=== PATIENT | male | born 1990 | race Two or more races ===

== ENCOUNTER → 2024-12-10 | Outpatient (CLI) | payer BC, SELFPAY | END | disposition home or self-care (01) | LOC: SLDO 14:28 | PROVIDERS: Referring Provider Student in an Organized Health Care Education/Training Program; Visit Provider Student in an Organized Health Care Education/Training Program | DX: M86.372 Chronic multifocal osteomyelitis, left ankle and foot (principal) | CPT/HCPCS: 87070; 87075; 87077; 87186; 87205 ==

== ENCOUNTER → 2024-12-10 | Outpatient (CLI) | payer BC, SELFPAY | END | disposition home or self-care (01) | LOC: SWHD 07:55 | PROVIDERS: PCP Family Medicine; Referring Provider Family Medicine; Visit Provider Student in an Organized Health Care Education/Training Program | DX: S91.002D Unspecified open wound, left ankle, subsequent encounter (principal); V87.8XXD Person injured in other specified noncollision transport accidents involving motor vehicle (traffic), subsequent encounter; T81.89XD Other complications of procedures, not elsewhere classified, subsequent encounter; F17.200 Nicotine dependence, unspecified, uncomplicated; M86.9 Osteomyelitis, unspecified | CPT/HCPCS: 11042; 99214; A9270; G0463 ==

== ENCOUNTER → 2024-12-19 | Outpatient (CLI) | payer BC, SELFPAY | END | disposition home or self-care (01) | LOC: SWHD 13:41 | PROVIDERS: PCP Family Medicine; Referring Provider Family Medicine; Visit Provider Student in an Organized Health Care Education/Training Program | DX: S91.002D Unspecified open wound, left ankle, subsequent encounter (principal); V87.8XXD Person injured in other specified noncollision transport accidents involving motor vehicle (traffic), subsequent encounter; T81.89XD Other complications of procedures, not elsewhere classified, subsequent encounter; F17.200 Nicotine dependence, unspecified, uncomplicated; M86.9 Osteomyelitis, unspecified | CPT/HCPCS: 97597; A9270 ==

== ENCOUNTER → 2024-12-24 | Outpatient (CLI) | payer BC, SELFPAY ==
--- NOTE | 2024-12-24 15:05 | XR_ITS ---
EXAMINATION: Ankle, left 3 views . Technique: Ankle AP, oblique, lateral 3 views Date and time of exam: December 24, 2024 1511 hours Comparison February 25, 2024 INDICATIONS: Chronic ankle infection 22 years multiple surgeries the last 2011 FINDINGS: Abnormal sclerosis and thickening of the cortex distal tibial shaft with scalloped chronic defect in the tibial shaft on the medial side The erosion appears slightly more prominent compared to the 2023 exam No pathologic fracture Severe osteopenia IMPRESSION: Chronic osteomyelitis distal medial tibial shaft
[2024-12-24 16:55] LABS: C-Reactive Protein < 0.5 mg/dL (0.0-0.9)
[2024-12-24 17:14] LABS: Sed Rate (ESR) 14 mm/hr (0-15)
== END | disposition home or self-care (01) ==
LOC: CDIM 14:56 → COPL 15:22
PROVIDERS: Referring Provider Student in an Organized Health Care Education/Training Program; Visit Provider Student in an Organized Health Care Education/Training Program
DX: M86.662 Other chronic osteomyelitis, left tibia and fibula (principal); M86.372 Chronic multifocal osteomyelitis, left ankle and foot
CPT/HCPCS: 36415; 73610; 85652; 86140

== ENCOUNTER → 2025-01-21 | Outpatient (CLI) | payer BC, SELFPAY | END | disposition home or self-care (01) | LOC: SWHD 08:22 | PROVIDERS: PCP Family Medicine; Referring Provider Family Medicine; Visit Provider Student in an Organized Health Care Education/Training Program | DX: S91.002D Unspecified open wound, left ankle, subsequent encounter (principal); V87.8XXD Person injured in other specified noncollision transport accidents involving motor vehicle (traffic), subsequent encounter; T81.89XD Other complications of procedures, not elsewhere classified, subsequent encounter; F17.200 Nicotine dependence, unspecified, uncomplicated; M86.9 Osteomyelitis, unspecified | CPT/HCPCS: 97597; A9270 ==

== ENCOUNTER → 2025-01-28 | Outpatient (CLI) | payer BC, SELFPAY | END | disposition home or self-care (01) | LOC: SWHD 08:08 | PROVIDERS: PCP Family Medicine; Referring Provider Family Medicine; Visit Provider Student in an Organized Health Care Education/Training Program | DX: S91.002D Unspecified open wound, left ankle, subsequent encounter (principal); V87.8XXD Person injured in other specified noncollision transport accidents involving motor vehicle (traffic), subsequent encounter; T81.89XD Other complications of procedures, not elsewhere classified, subsequent encounter; F17.200 Nicotine dependence, unspecified, uncomplicated; M86.9 Osteomyelitis, unspecified | CPT/HCPCS: 97597; A9270 ==

== ENCOUNTER → 2025-01-31 | Outpatient (CLI) | payer BC, SELFPAY ==
--- NOTE | 2025-01-31 15:34 | XR_ITS ---
EXAMINATION: Ankle, right 3 views . Technique: Ankle AP, oblique, lateral 3 views Date and time of exam: January 31, 2025 1534 hours INDICATIONS: Nonhealing ulcer on the medial side of the ankle one month, chronic infection 15 years. FINDINGS: Chronic osteomyelitis medial anterior ankle at the level of the medial anterior distal tibia Severe osteopenia Extensive ankle effusion No acute fracture No fracture IMPRESSION: Again noted extensive chronic osteomyelitis distal anterior medial tibial shaft which appears slightly worse compared with December 24, 2024
[2025-01-31 16:08] LABS: Basophils # (Auto) 0.0 Thou/mm3 (0.0-0.2); Basophils % (Auto) 1 % (0-2.5); Eosinophils # (Auto) 0.0 Thou/mm3 (0.0-0.5); Eosinophils % (Auto) 1 % (0-10); Hematocrit 45.0 % (41.0-53.0); Hemoglobin 16.0 g/dL (13.5-16.0); Immature Granulocytes Auto 0.02 Thou/mm3 (0.00-0.00); Lymphocytes # (Auto) 2.0 Thou/mm3 (1.0-4.8); Lymphocytes % (Auto) 30 % (10-50); Mean Corpuscular HGB Conc 35.6 g/dl (31.0-37.0); Mean Corpuscular Hemoglobin 32.2 pg (25.0-35.0); Mean Corpuscular Volume 91 fL (80-100); Monocytes # (Auto) 0.5 Thou/mm3 (0.0-0.8); Monocytes % (Auto) 7 % (0-12); Neutrophils # (Auto) 4.1 Thou/mm3 (1.8-7.7); Neutrophils % (Auto) 62 % (37-80); Nucleated Red Blood Cell # 0.00 Thou/mm3 (0.00-0.00); Nucleated Red Blood Cell % 0 /100 WBC (0); Platelet Count 308 Thou/mm3 (140-440); RDW Standard Deviation 41.1 fL (35.1-43.9); Red Blood Count 4.97 Miln/mm3 (4.50-5.90); White Blood Count 6.7 Thou/mm3 (3.8-10.6)
[2025-01-31 16:22] LABS: Sed Rate (ESR) 15 mm/hr (0-15)
[2025-01-31 16:44] LABS: C-Reactive Protein < 0.5 mg/dL (0.0-0.9)
== END | disposition home or self-care (01) ==
LOC: CDIM 15:06 → COPL 15:44
PROVIDERS: Referring Provider Student in an Organized Health Care Education/Training Program; Visit Provider Radiology Diagnostic Radiology
DX: M86.662 Other chronic osteomyelitis, left tibia and fibula (principal); M86.372 Chronic multifocal osteomyelitis, left ankle and foot
CPT/HCPCS: 36415; 73610; 85025; 85652; 86140

== ENCOUNTER → 2025-02-04 | Outpatient (CLI) | payer BC, SELFPAY | END | disposition home or self-care (01) | PROVIDERS: PCP Family Medicine; Referring Provider Family Medicine; Visit Provider Student in an Organized Health Care Education/Training Program | DX: S91.002D Unspecified open wound, left ankle, subsequent encounter (principal); V87.8XXD Person injured in other specified noncollision transport accidents involving motor vehicle (traffic), subsequent encounter; T81.89XD Other complications of procedures, not elsewhere classified, subsequent encounter | CPT/HCPCS: 11042; A9270 ==

== ENCOUNTER → 2025-02-04 | Outpatient (CLI) | payer BC, SELFPAY | END | disposition home or self-care (01) | LOC: SLDO 14:28 | PROVIDERS: Referring Provider Student in an Organized Health Care Education/Training Program; Visit Provider Student in an Organized Health Care Education/Training Program | DX: M86.372 Chronic multifocal osteomyelitis, left ankle and foot (principal) | CPT/HCPCS: 87070; 87075; 87077; 87186; 87205 ==

== ENCOUNTER → 2025-02-11 | Outpatient (CLI) | payer BC, SELFPAY | END | disposition home or self-care (01) | LOC: SWHD 15:07 | PROVIDERS: PCP Family Medicine; Referring Provider Family Medicine; Visit Provider Student in an Organized Health Care Education/Training Program | DX: S91.002D Unspecified open wound, left ankle, subsequent encounter (principal); V87.8XXD Person injured in other specified noncollision transport accidents involving motor vehicle (traffic), subsequent encounter; T81.89XD Other complications of procedures, not elsewhere classified, subsequent encounter; I10 Essential (primary) hypertension; E78.1 Pure hyperglyceridemia; A48.8 Other specified bacterial diseases | CPT/HCPCS: 97597; A9270 ==

== ENCOUNTER → 2025-02-18 | Outpatient (CLI) | payer BC, SELFPAY | END | disposition home or self-care (01) | LOC: SWHD 15:10 | PROVIDERS: PCP Family Medicine; Referring Provider Family Medicine; Visit Provider Student in an Organized Health Care Education/Training Program | DX: S91.002D Unspecified open wound, left ankle, subsequent encounter (principal); V87.8XXD Person injured in other specified noncollision transport accidents involving motor vehicle (traffic), subsequent encounter; T81.89XD Other complications of procedures, not elsewhere classified, subsequent encounter; I10 Essential (primary) hypertension; E78.1 Pure hyperglyceridemia; A48.8 Other specified bacterial diseases | CPT/HCPCS: 97597; A9270 ==

== ENCOUNTER → 2025-02-25 | Outpatient (CLI) | payer BC, SELFPAY | END | disposition home or self-care (01) | LOC: SWHD 15:03 | PROVIDERS: PCP Family Medicine; Referring Provider Family Medicine; Visit Provider Student in an Organized Health Care Education/Training Program | DX: S91.002D Unspecified open wound, left ankle, subsequent encounter (principal); V87.8XXD Person injured in other specified noncollision transport accidents involving motor vehicle (traffic), subsequent encounter; T81.89XD Other complications of procedures, not elsewhere classified, subsequent encounter; I10 Essential (primary) hypertension; E78.1 Pure hyperglyceridemia; A48.8 Other specified bacterial diseases | CPT/HCPCS: 97597; A9270 ==

== ENCOUNTER → 2025-02-28 | Outpatient (CLI) | payer BC, SELFPAY ==
[2025-02-28 10:57] LABS: Alanine Aminotransferase 17 U/L (10-49); Albumin, Serum 4.7 gm/dL (3.5-5.0); Albumin/Globulin Ratio 1.5 (1.2-2.2); Alkaline Phosphatase 90 U/L (46-116); Anion Gap 11 (7-16); Aspartate Amino Transferase 24 U/L (0-34); BUN/Creatinine Ratio 13 Ratio (12-20); Bilirubin,Total 1.0 mg/dL (0.3-1.2); Blood Urea Nitrogen 13 mg/dL (9-23); Calcium 9.5 mg/dL (8.3-10.6); Calcium (Corrected) 9.5 mg/dL (8.5-10.1); Carbon Dioxide 27.0 mMol/L (20.0-31.0); Chloride 101 mMol/L (98-107); Creatinine (Component) 1.0 mg/dL (0.6-1.3); Globulin 3.2 gm/dL (2.3-3.5); Glucose 85 mg/dL (74-106); Osmolality,Calculated 276 (275-295); Potassium 4.0 mMol/L (3.4-5.1); Sodium 139 mMol/L (136-145); Total Protein 7.9 gm/dL (5.7-8.2); eGFR > 60 See Note
== END | disposition home or self-care (01) ==
LOC: COPL 09:53
PROVIDERS: PCP Family Medicine; Referring Provider Student in an Organized Health Care Education/Training Program; Visit Provider Student in an Organized Health Care Education/Training Program
DX: M86.162 Other acute osteomyelitis, left tibia and fibula (principal)
CPT/HCPCS: 36415; 80053

== ENCOUNTER → 2025-03-04 | Outpatient (CLI) | payer BC, SELFPAY | END | disposition home or self-care (01) | LOC: SWHD 15:04 | PROVIDERS: PCP Family Medicine; Referring Provider Family Medicine; Visit Provider Student in an Organized Health Care Education/Training Program | DX: S91.002D Unspecified open wound, left ankle, subsequent encounter (principal); V87.8XXD Person injured in other specified noncollision transport accidents involving motor vehicle (traffic), subsequent encounter; T81.89XD Other complications of procedures, not elsewhere classified, subsequent encounter; I10 Essential (primary) hypertension; E78.1 Pure hyperglyceridemia; A48.8 Other specified bacterial diseases | CPT/HCPCS: 97597; A9270 ==

== ENCOUNTER → 2025-03-18 | Outpatient (CLI) | payer BC, SELFPAY | END | disposition home or self-care (01) | LOC: SWHD 13:05 | PROVIDERS: PCP Family Medicine; Referring Provider Family Medicine; Visit Provider Student in an Organized Health Care Education/Training Program | DX: S91.002D Unspecified open wound, left ankle, subsequent encounter (principal); V87.8XXD Person injured in other specified noncollision transport accidents involving motor vehicle (traffic), subsequent encounter; T81.89XD Other complications of procedures, not elsewhere classified, subsequent encounter; I10 Essential (primary) hypertension; E78.1 Pure hyperglyceridemia; A48.8 Other specified bacterial diseases | CPT/HCPCS: 11042; A9270 ==

== ENCOUNTER → 2025-04-15 | Outpatient (CLI) | payer BC, SELFPAY | END | disposition home or self-care (01) | LOC: SWHD 12:35 | PROVIDERS: PCP Family Medicine; Referring Provider Family Medicine; Visit Provider Student in an Organized Health Care Education/Training Program | DX: T81.89XD Other complications of procedures, not elsewhere classified, subsequent encounter (principal); S91.002D Unspecified open wound, left ankle, subsequent encounter; V87.8XXD Person injured in other specified noncollision transport accidents involving motor vehicle (traffic), subsequent encounter; I10 Essential (primary) hypertension; E78.1 Pure hyperglyceridemia; A48.8 Other specified bacterial diseases | CPT/HCPCS: 97597; A9270 ==

== ENCOUNTER → 2025-04-29 | Outpatient (CLI) | payer BC, SELFPAY ==
--- NOTE | 2025-04-29 16:38 | XR_ITS ---
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 Findings: Cortical defect in the medial distal tibia again noted, axial image 13 consistent with chronic sclerosing osteomyelitis Also cortical erosions involving the distal tibia on the lateral side axial image 14 No soft tissue abscess Fusion at the tibiotalar joint Achilles tendon is intact There are numerous artifacts over the distal tibia Plantar fascia intact IMPRESSION: Stable sclerosing osteomyelitis distal tibia with bony defects as above No soft tissue abscess
== END | disposition home or self-care (01) ==
LOC: SMRI 16:16
PROVIDERS: PCP Family Medicine; Referring Provider Student in an Organized Health Care Education/Training Program; Visit Provider Student in an Organized Health Care Education/Training Program
DX: M86.8X6 Other osteomyelitis, lower leg (principal)
CPT/HCPCS: 73723; A9577

== ENCOUNTER → 2025-04-30 | Outpatient (CLI) | payer BC, SELFPAY | END | disposition home or self-care (01) | LOC: SWHD 09:03 | PROVIDERS: PCP Family Medicine; Referring Provider Family Medicine; Visit Provider Student in an Organized Health Care Education/Training Program | DX: T81.89XD Other complications of procedures, not elsewhere classified, subsequent encounter (principal); S91.002D Unspecified open wound, left ankle, subsequent encounter; V87.8XXD Person injured in other specified noncollision transport accidents involving motor vehicle (traffic), subsequent encounter; L97.322 Non-pressure chronic ulcer of left ankle with fat layer exposed; I10 Essential (primary) hypertension; E78.1 Pure hyperglyceridemia; A48.8 Other specified bacterial diseases | CPT/HCPCS: 97597; A9270 ==

== ENCOUNTER 2025-05-07 08:38 | Outpatient (CLI) | payer BC, SELFPAY ==
[2025-05-06 11:11] LABS: Basophils # (Auto) 0.0 Thou/mm3 (0.0-0.2); Basophils % (Auto) 1 % (0-2.5); Eosinophils # (Auto) 0.2 Thou/mm3 (0.0-0.5); Eosinophils % (Auto) 4 % (0-10); Hematocrit 43.8 % (41.0-53.0); Hemoglobin 15.5 g/dL (13.5-16.0); Immature Granulocytes Auto 0.02 Thou/mm3 (0.00-0.00); Lymphocytes # (Auto) 2.0 Thou/mm3 (1.0-4.8); Lymphocytes % (Auto) 31 % (10-50); Mean Corpuscular HGB Conc 35.4 g/dl (31.0-37.0); Mean Corpuscular Hemoglobin 32.4 pg (25.0-35.0); Mean Corpuscular Volume 91 fL (80-100); Monocytes # (Auto) 0.5 Thou/mm3 (0.0-0.8); Monocytes % (Auto) 7 % (0-12); Neutrophils # (Auto) 3.8 Thou/mm3 (1.8-7.7); Neutrophils % (Auto) 57 % (37-80); Nucleated Red Blood Cell # 0.00 Thou/mm3 (0.00-0.00); Nucleated Red Blood Cell % 0 /100 WBC (0); Platelet Count 277 Thou/mm3 (140-440); RDW Standard Deviation 40.2 fL (35.1-43.9); Red Blood Count 4.79 Miln/mm3 (4.50-5.90); White Blood Count 6.6 Thou/mm3 (3.8-10.6)
[2025-05-06 11:14] LABS: INR 1.0 (0.9-1.3); Partial Thromboplastin Time 30.7 Seconds (22.0-36.0); Prothrombin Time 10.3 Seconds (9.0-12.2)
[2025-05-07] VITALS (9 sets, daily range): BP systolic 104–156; BP diastolic 71–116; PULSE 73–97; RESP 10–18; TEMP 36.9; O2SAT 95–100; BMI 37.9
--- NOTE | 2025-05-07 09:30 | XR_ITS ---
Examination: CT-guided percutaneous bone biopsy right ankle distal tibia CT right ankle without intravenous contrast INDICATIONS: Diagnosis chronic multifocal osteomyelitis including defect in the distal tibia on the medial side Date and time of procedure: May 07, 2025, 1025 hours Informed consent provided. A timeout was completed verifying correct patient, procedure, site and positioning. Technique: Axial 3 mm sections were obtained for localization of the right ankle Appropriate area is marked. The patient's site was prepped and draped in sterile fashion Maximal sterile barrier technique utilized, including hand hygiene Local anesthesia was obtained with 1% lidocaine. Low dose protocols were performed. One or more of the following dose reduction techniques were used; automated exposure control, adjustment of the mA and/or KV according to patient size, use of iterative reconstruction technique. Utilizing CT fluoroscopic guidance 2 core bone biopsies obtained and placed in culture and sensitivity material Patient appears in stable condition during this procedure. At completion of the procedure, the patient is in satisfactory condition. Estimated blood loss 0 cc Complete culture and sensitivity report to follow. Impression: Successful CT-guided bone biopsy distal right tibia
[2025-05-07] MEDS: fentaNYL CIT INJ 50 mCg/ML AMP 2ML 125 MCG IVP (10:44)
[2025-05-07 11:49] LABS: Cult AFB Sendout- Not Sputum* See Sep Rpt
== END 2025-05-07 11:45 | disposition home or self-care (01) ==
PROVIDERS: PCP Student in an Organized Health Care Education/Training Program; Referring Provider Student in an Organized Health Care Education/Training Program; Visit Provider Radiology Diagnostic Radiology
DX: M86.372 Chronic multifocal osteomyelitis, left ankle and foot (principal)
CPT/HCPCS: 27620; 36415; 77012; 85025; 85610; 85730; 87102; 87116; 87206; J3010

== ENCOUNTER 2025-05-09 08:07 | Outpatient (RCR) | payer BC, SELFPAY | END 2025-05-09 23:59 | disposition home or self-care (01) | LOC: SWHD 08:07 | PROVIDERS: PCP Family Medicine; Referring Provider Family Medicine; Visit Provider Surgery | DX: T81.89XD Other complications of procedures, not elsewhere classified, subsequent encounter (principal); S91.002D Unspecified open wound, left ankle, subsequent encounter; V87.8XXD Person injured in other specified noncollision transport accidents involving motor vehicle (traffic), subsequent encounter; L97.322 Non-pressure chronic ulcer of left ankle with fat layer exposed; M86.8X7 Other osteomyelitis, ankle and foot; I10 Essential (primary) hypertension; E78.1 Pure hyperglyceridemia; A48.8 Other specified bacterial diseases; R21 Rash and other nonspecific skin eruption | CPT/HCPCS: G0277 ==

== ENCOUNTER 2025-05-29 07:25 | Outpatient (CLI) | payer BC, SELFPAY ==
[2025-05-27 15:55] VITALS: BMI 37.1
[2025-05-28 11:26] LABS: Basophils # (Auto) 0.0 Thou/mm3 (0.0-0.2); Basophils % (Auto) 1 % (0-2.5); Eosinophils # (Auto) 0.3 Thou/mm3 (0.0-0.5); Eosinophils % (Auto) 4 % (0-10); Hematocrit 44.4 % (41.0-53.0); Hemoglobin 15.8 g/dL (13.5-16.0); Immature Granulocytes Auto 0.01 Thou/mm3 (0.00-0.00); Lymphocytes # (Auto) 1.8 Thou/mm3 (1.0-4.8); Lymphocytes % (Auto) 30 % (10-50); Mean Corpuscular HGB Conc 35.6 g/dl (31.0-37.0); Mean Corpuscular Hemoglobin 32.0 pg (25.0-35.0); Mean Corpuscular Volume 90 fL (80-100); Monocytes # (Auto) 0.4 Thou/mm3 (0.0-0.8); Monocytes % (Auto) 7 % (0-12); Neutrophils # (Auto) 3.4 Thou/mm3 (1.8-7.7); Neutrophils % (Auto) 58 % (37-80); Nucleated Red Blood Cell # 0.00 Thou/mm3 (0.00-0.00); Nucleated Red Blood Cell % 0 /100 WBC (0); Platelet Count 329 Thou/mm3 (140-440); RDW Standard Deviation 39.8 fL (35.1-43.9); Red Blood Count 4.94 Miln/mm3 (4.50-5.90); White Blood Count 5.9 Thou/mm3 (3.8-10.6)
[2025-05-28 11:32] LABS: INR 1.0 (0.9-1.3); Partial Thromboplastin Time 31.2 Seconds (22.0-36.0); Prothrombin Time 10.6 Seconds (9.0-12.2)
[2025-05-29] VITALS (9 sets, daily range): BP systolic 113–146; BP diastolic 76–106; PULSE 63–72; RESP 11–19; TEMP 36.1–36.2; O2SAT 93–100
--- NOTE | 2025-05-29 08:30 | XR_ITS ---
Examination: CT guided percutaneous bone biopsy deep distal tibia CT ankle without intravenous contrast INDICATIONS: Chronic multifocal osteomyelitis distal tibia on MR study April 29, 2025 Date and time of procedure: May 29, 2025, 0913 hours Informed consent provided. A timeout was completed verifying correct patient, procedure, site and positioning. Technique: Axial 3 mm sections were obtained for localization of the distal tibia Appropriate area is marked. The patient's site was prepped and draped in sterile fashion Maximal sterile barrier technique utilized, including hand hygiene Local anesthesia was obtained with 1% lidocaine. Low dose protocols were performed. One or more of the following dose reduction techniques were used; automated exposure control, adjustment of the mA and/or KV according to patient size, use of iterative reconstruction technique. Utilizing CT fluoroscopic guidance, 3 core biopsies obtained of the periosteum distal tibia Patient appears in stable condition during this procedure. At completion of the procedure, the patient is in satisfactory condition. Estimated blood loss 2 cc Complete pathology report to follow. Impression: Successful CT-guided percutaneous bone biopsy deep distal tibia, right
[2025-05-29] MEDS: fentaNYL CIT INJ 50 mCg/ML AMP 2ML 125 MCG IVP (09:32)
[2025-05-29 10:25] LABS: Cult AFB Sendout- Not Sputum* See Sep Rpt
== END 2025-05-29 10:42 | disposition home or self-care (01) ==
PROVIDERS: Radiology Diagnostic Radiology; PCP Family Medicine; Referring Provider Physician Assistant; Visit Provider Physician Assistant
DX: M86.8X7 Other osteomyelitis, ankle and foot (principal)
CPT/HCPCS: 27620; 36415; 77012; 85025; 85610; 85730; 87070; 87077; 87102; 87116; 87186; 87205; 87206; J3010

== ENCOUNTER 2025-06-03 08:02 | Outpatient (RCR) | payer BC, SELFPAY | END 2025-06-08 23:59 | disposition home or self-care (01) | LOC: SWHD 08:02 | PROVIDERS: PCP Family Medicine; Referring Provider Family Medicine; Visit Provider Student in an Organized Health Care Education/Training Program | DX: T81.89XD Other complications of procedures, not elsewhere classified, subsequent encounter (principal); S91.002D Unspecified open wound, left ankle, subsequent encounter; V87.8XXD Person injured in other specified noncollision transport accidents involving motor vehicle (traffic), subsequent encounter; L97.322 Non-pressure chronic ulcer of left ankle with fat layer exposed; M86.8X7 Other osteomyelitis, ankle and foot; I10 Essential (primary) hypertension; E78.1 Pure hyperglyceridemia; A48.8 Other specified bacterial diseases; R21 Rash and other nonspecific skin eruption | CPT/HCPCS: 97597 ×2; 99213; A9270; G0277; G0463 ==

== ENCOUNTER 2025-06-18 08:02 | Outpatient (RCR) | payer BC, SELFPAY | END 2025-07-09 23:59 | disposition home or self-care (01) | LOC: SWHD 08:02 | PROVIDERS: PCP Family Medicine; Referring Provider Family Medicine; Visit Provider Student in an Organized Health Care Education/Training Program | DX: T81.89XD Other complications of procedures, not elsewhere classified, subsequent encounter (principal); S91.002D Unspecified open wound, left ankle, subsequent encounter; V87.8XXD Person injured in other specified noncollision transport accidents involving motor vehicle (traffic), subsequent encounter; L97.322 Non-pressure chronic ulcer of left ankle with fat layer exposed; M86.8X7 Other osteomyelitis, ankle and foot; I10 Essential (primary) hypertension; E78.1 Pure hyperglyceridemia; A48.8 Other specified bacterial diseases; R21 Rash and other nonspecific skin eruption | CPT/HCPCS: 11042; A9270; G0277 ==